=== PATIENT | female | born 1945 | race Two or more races ===

== ENCOUNTER 2019-08-04 09:11 | Outpatient (CLI) | payer OTHER | END 2019-08-04 09:15 | disposition home or self-care (01) | LOC: SONOGRAMA 09:11 | DX: E04.2 Nontoxic multinodular goiter (principal) ==

== ENCOUNTER 2023-02-17 10:59 | Outpatient (CLI) | payer OTHER | END 2023-02-17 11:26 | disposition home or self-care (01) | LOC: RX STUDY 10:59 | PROVIDERS: ATTEND Urology | DX: N39.46 Mixed incontinence (principal); N81.10 Cystocele, unspecified | CPT/HCPCS: 51600; 74455; A9698 ==